=== PATIENT | male | born 1950 | race Caucasian/White ===

== ENCOUNTER 2022-12-05 16:56 | Inpatient (IN) | payer MEDICARE, OTHER ==
[~2022-12-05] VITALS: Ht 180.3 cm; Wt 41.9 kg
--- NOTE | 2022-12-05 17:18 | NUR ---
URINE SAMPLE COLLECTED AND SENT TO LAB.
--- NOTE | 2022-12-05 17:32 | NUR ---
LAC 20G STARTED BLOOD DRAWN
[2022-12-05 18:03] LABS: BASOPHILS # (AUTO) 0.1 K/uL (0.0-0.2); BASOPHILS % (AUTO) 0.4 % (0.0-2.0); EOSINOPHILS % (AUTO) 4.2 % (0.0-6.0); HEMATOCRIT 37 % (39-51); HEMOGLOBIN 11.3 g/dL (13.5-17.5); LYMPHOCYTES # (AUTO) 2.9 K/uL (0.8-4.8); LYMPHOCYTES % (AUTO) 18.9 % (20.0-44.0); MEAN CORPUSCULAR HGB CONC 31 g/dl (31.0-36.0); MEAN CORPUSCULAR VOLUME 87 fL (80-96); MONOCYTES # (AUTO) 0.7 K/uL (0.1-1.30); MONOCYTES % (AUTO) 4.4 % (2.0-12.0); NEUTROPHILS # (AUTO) 11.2 K/uL (1.8-8.9); NEUTROPHILS % (AUTO) 72.1 % (43.0-81.0); PLATELET COUNT (AUTO) 383 K/uL (150-450); RED BLOOD CELL COUNT(AUTO) 4.23 MIL/uL (4.5-6.0); WHITE BLOOD COUNT (AUTO) 15.6 K/uL (4.3-11.0)
[2022-12-05 18:19] LABS: BILIRUBIN,URINE 1+ (NEGATIVE); COLOR,URINE RED (YELLOW); LEUKOCYTE ESTERASE ,URINE 2+ (NEGATIVE); NITRITE, URINE POSITIVE (NEGATIVE); PROTEIN,URINE 2+ mg/dl (NEGATIVE); UGLUCOSE 3+ mg/dL (NEGATIVE)
[2022-12-05 18:22] LABS: BACTERIA,URINE 3+ /HPF (None Seen); RBC,URINE TOO NUMEROUS TO COUN /HPF (0-2); SQUAMOUS EPITHELIAL CELL,UR Few /HPF (None Seen); WBC,URINE TOO NUMEROUS TO COUN /HPF (0-3)
[2022-12-05 18:58] LABS: CALCIUM, SERUM 8.9 mg/dL (8.5-10.1); CARBON DIOXIDE 28 mmol/L (21-32); CHLORIDE 102 mmol/L (98-107); CREATININE 2.5 mg/dL (0.6-1.3); GLUCOSE 206 mg/dL (74-106); POTASSIUM 4.6 mmol/L (3.5-5.1); SODIUM SERUM 138 mmol/L (136-145); UREA NITROGEN, BLOOD 52 mg/dL (7-18)
[2022-12-05 19:03] LABS: ALANINE AMINOTRANSFERASE 21 U/L (12-78); ALBUMIN 2.3 g/dL (3.4-5.0); ALKALINE PHOSPHATASE 146 U/L (46-116); ASPARTATE AMINOTRANSFERASE 25 U/L (15-37); BILIRUBIN,DIRECT 0.1 mg/dL (0.0-0.2); BILIRUBIN,TOTAL 0.3 mg/dL (0.2-1.0); TOTAL PROTEIN, SERUM 8.3 g/dL (6.4-8.2)
--- NOTE | 2022-12-05 19:36 | NUR ---
REPORT RECEIVED FROM DAISY FERRARO
[2022-12-05] MEDS ORDERED: CEFTRIAXONE 1GM BAG (ER ONLY) 50 ML IV ONE (19:37)
[2022-12-05] MEDS ORDERED: CEFTRIAXONE 1GM BAG (ER ONLY) 1 GM/50 ML PIGGYBACK IV ONE (20:00)
--- NOTE | 2022-12-05 20:26 | NUR ---
COVID SWAB DONE AND SENT TO LAB
--- NOTE | 2022-12-05 20:44 | NUR ---
PATIENT IS ALLOWED TO EAT PER JASON DEAL
[2022-12-05] MEDS ORDERED: DEXTROSE 50%-WATER 50 ML DISP.SYRIN IV PRN (21:00)
--- NOTE | 2022-12-05 21:00 | NUR ---
SEEN BY JASON DEAL AT BEDSIDE
--- NOTE | 2022-12-05 21:07 | NUR ---
REPORT GIVEN TO DASIY REYES
--- NOTE | 2022-12-05 21:40 | NUR ---
BLAST FURNACE OPERATOR NOTES RECEIVED PT ON A GURNEY FROM LENS MOLD SETTER. A/O X 4, ABLE TO MAKE NEEDS KNOWN. ORIENTED TO STAFF AND UNIT. PT IS ON ROOM AIR, TOLERATING WELL, BREATHING EVEN AND UNLABORED @ THIS TIME. PT IV ACCESS ON LEFT AC #20G SALINE LOCK., PATENT, INTACT AND FLUSHES WELL W/ NO S & SX OF INFILTRATION @ SITE NOTED. SKIN IS WARM AND DRY. PATIENT REFUSED PHOTO TO BE TAKEN ON AMPUTATED LEFT FOOT AND AMPUTATED RIGHT MID-FOOT. PT BELONGINGS LISTED AND FILED IN THE CHART. ALL NEEDS ATTENDED. SAFETY MEASURES INITIATED. BED PLACED IN LOWEST AND LOCK POSITION. SIDE RAILS UP X 2. BEDSIDE TABLE AND CALL LIGHT IS EASY REACH. BED ALARM IS ON. WILL CONTINUE TO MONITOR ACCORDINGLY.
[2022-12-05] MEDS ORDERED: ONDANSETRON HCL/PF 4 MG/2 ML VIAL IVP PRN (22:00)
[2022-12-05] MEDS ORDERED: ACETAMINOPHEN 325 MG TABLET PO PRN (22:00)
[2022-12-05] MEDS ORDERED: Z GUARD REMEDY 4 OZ OINT TP PRN (22:00)
[2022-12-05] MEDS ORDERED: HYDROCODONE/APAP 5/325MG TABLET PO PRN (22:00)
--- NOTE | 2022-12-05 22:00 | NUR ---
PT REFUSE PHOTO TO BE TAKEN ON AMPUTATED L FOOT AND AMPUTATED R MID FOOT UPON ADMISSION. CHARGE NURSE KAYDEN WAS NOTIFIED AND INFORMED.
--- NOTE | 2022-12-05 23:00 | NUR ---
INSERTED CONDOM CATHETER TO PT. CONDOM CATHETER IN PLACE DRAINING RED URINE.
[2022-12-06 00:29] VITALS: BP 122/65
[2022-12-06 00:32] VITALS: BP 122/63
[2022-12-06] MEDS: BLOOD SUGAR DIAGNOSTIC 1 EACH STRIP IN SCH ×5 (00:35→21:53)
[2022-12-06] MEDS: IV NS 0.9% 1,000 ML IV PRN ×2 (04:26→23:35)
--- NOTE | 2022-12-06 05:17 | NUR ---
KING CATHETER INSERTED @ 0500, IN PLACE DRAINING PINK URINE.
--- NOTE | 2022-12-06 06:05 | NUR ---
CALLED NIRAJ BLUNT OF [facility] FOR PT LIST OF MEDICATION @3530. REQUESTED NIRAJ TO FAX THE LIST TO [facility]. NO LIST OF MEDICATION RECEIVED OF THIS TIME. WILL CONTINUE TO FOLLOW UP.
[2022-12-06 06:08] LABS: BASOPHILS # (AUTO) 0.1 K/uL (0.0-0.2); BASOPHILS % (AUTO) 0.5 % (0.0-2.0); EOSINOPHILS % (AUTO) 4.7 % (0.0-6.0); HEMATOCRIT 37 % (39-51); LYMPHOCYTES # (AUTO) 3.6 K/uL (0.8-4.8); LYMPHOCYTES % (AUTO) 22.5 % (20.0-44.0); MEAN CORPUSCULAR HGB CONC 30 g/dl (31.0-36.0); MEAN CORPUSCULAR VOLUME 89 fL (80-96); MONOCYTES # (AUTO) 0.7 K/uL (0.1-1.30); MONOCYTES % (AUTO) 4.1 % (2.0-12.0); NEUTROPHILS # (AUTO) 10.9 K/uL (1.8-8.9); NEUTROPHILS % (AUTO) 68.2 % (43.0-81.0); PLATELET COUNT (AUTO) 390 K/uL (150-450); RED BLOOD CELL COUNT(AUTO) 4.16 MIL/uL (4.5-6.0)
[2022-12-06 06:10] LABS: IRON, SERUM 47 ug/dl (50-175); TOTAL IRON BINDING CAPACITY 160 ug/dl (250-450)
[2022-12-06 06:19] LABS: CALCIUM, SERUM 9.3 mg/dL (8.5-10.1); CARBON DIOXIDE 24 mmol/L (21-32); CHLORIDE 103 mmol/L (98-107); CREATININE 2.7 mg/dL (0.6-1.3); GLUCOSE 254 mg/dL (74-106); MAGNESIUM 2.1 mg/dL (1.8-2.4); PHOSPHORUS 4.8 mg/dL (2.5-4.9); POTASSIUM 4.3 mmol/L (3.5-5.1); SODIUM SERUM 135 mmol/L (136-145); UREA NITROGEN, BLOOD 54 mg/dL (7-18)
[2022-12-06 06:24] LABS: FERRITIN 269 ng/mL (8-388)
--- NOTE | 2022-12-06 06:31 | NUR ---
RN CLOSING NOTES PT IS AWAKE, A/O X 4, RESPONSIVE AND FOLLOWS VERBAL COMMAND. PT IN RA WITH NO RESPIRATORY DISTRESS NOTED AT THIS TIME. IV SITE ON L AC #20G, PATENT, INTACT AND FLUSHES WELL WITH NO INFILTRATION @SITE NOTED. PT KING CATHETER IS IN PLACE DRAINING PINK URINE. PT KEPT CLEAN, DRY AND COMFORTABLE. ADMINISTERED MEDICATION ACCORDINGLY PER MD'S ORDER. SAFETY MEASURES IS IN PLACE. BED PLACED IN LOWEST AND LOCKED POSITION. SIDE RAILS UP X 2. BEDSIDE TABLE AND CALL LIGHT BUTTON IS EASY REACH. BED ALARM IS ON. WILL ENDORSE PT TO THE NEXT SHIFT FOR CONTINUITY OF CARE.
--- NOTE | 2022-12-06 07:30 | NUR ---
MS RN OPENING NOTES RECEIVED PATIENT IN BED AWAKE AND VERBALLY RESPONSIVE , A/O X4 , ON ROOM AIR WITH NO SOB OR DISTRESS NOTED , NO C/O OF PAIN AND DISCOMFORT , IV ACCESS ON LAC#20 WITH NS @75ML / HR , WITH KING CATHETER DRAINING WITH TEA COLORED URINE , NO ACTIVE BLEEDING NOTED , SAFETY MEASURES PROVIDED , SIDE RIALS UP X2 , CALL LIGHT WITHIN REACH AND MONITORED FOR ANY CHANGES .
[2022-12-06] MEDS: PANTOPRAZOLE 40 MG TABLET.DR PO SCH (07:55)
[2022-12-06 08:05] VITALS: BP 129/67
[2022-12-06] MEDS: INSULIN REGULAR, HUMAN 100 UNIT/ML 3 ML VIAL SQ PRN ×4 (09:14→21:56)
--- NOTE | 2022-12-06 10:36 | NUR ---
COLOR ROOM ATTENDANT/MED RECON PATIENT UNABLE TO PROVIDE HOME MEDICATION INFORMATION. FROM [facility] [phone], SPOKE WITH NIRAJ AND WILL FAX INFORMATION ETHAN OR LATER. PRIMARY RN AWARE.
[2022-12-06] MEDS: DOCUSATE SODIUM 100 MG CAPSULE PO SCH (11:25)
[2022-12-06] MEDS ORDERED: ZINC56.713 TP (15:10)
[2022-12-06] MEDS ORDERED: COLL30OI TP (15:10)
[2022-12-06] MEDS ORDERED: ASPI-1169 PO (15:10)
[2022-12-06] MEDS ORDERED: LEVO25TA76 PO (15:10)
[2022-12-06] MEDS ORDERED: PANT40TA49 PO (15:10)
[2022-12-06] MEDS ORDERED: APIX2.5T PO (15:10)
[2022-12-06] MEDS ORDERED: ACET-868 PO (15:10)
[2022-12-06] MEDS ORDERED: CANA100T PO (15:10)
[2022-12-06] MEDS ORDERED: HYDR-3973 PO (15:10)
[2022-12-06] MEDS ORDERED: DOCU-141 PO (15:10)
[2022-12-06] MEDS ORDERED: FURO20TA4 PO (15:10)
[2022-12-06] MEDS ORDERED: MULT-447 PO (15:10)
[2022-12-06] MEDS ORDERED: ASCO-340 PO (15:10)
[2022-12-06] MEDS ORDERED: INSU100I40 SQ (15:10)
[2022-12-06] MEDS ORDERED: LOSA25TA27 PO (15:10)
[2022-12-06] MEDS ORDERED: INSU100V39 SQ (15:10)
[2022-12-06] MEDS ORDERED: AMIO200T5 PO (15:10)
[2022-12-06] MEDS ORDERED: ISOS30TA86 PO (15:10)
[2022-12-06] MEDS ORDERED: METO50TA16 PO (15:10)
[2022-12-06] MEDS ORDERED: GLUC1KIT SQ (15:10)
[2022-12-06] MEDS ORDERED: INSU100V7 SQ (15:10)
[2022-12-06] MEDS ORDERED: ZINC220C6 PO (15:10)
[2022-12-06] MEDS ORDERED: ATOR40TA PO (15:10)
[2022-12-06] MEDS ORDERED: SENN-148 PO (15:10)
[2022-12-06] MEDS ORDERED: ZOLP5TAB8 PO (15:10)
[2022-12-06] MEDS ORDERED: SACC250C PO (15:10)
[2022-12-06 16:00] VITALS: BP 116/63
[2022-12-06] MEDS: PROSOURCE / PROSTAT (PYXIS) 30 ML UDC GT SCH (17:13)
[2022-12-06 18:20] LABS: CREATININE, URINE 32.1 MG/DL (30.0-125.0)
[2022-12-06 18:27] LABS: BILIRUBIN,URINE 1+ (NEGATIVE); COLOR,URINE RED (YELLOW); LEUKOCYTE ESTERASE ,URINE 1+ (NEGATIVE); NITRITE, URINE POSITIVE (NEGATIVE); PH,URINE 5.5 (5.0-8.0); PROTEIN,URINE 3+ mg/dl (NEGATIVE); UGLUCOSE 2+ mg/dL (NEGATIVE)
[2022-12-06 18:29] LABS: BACTERIA,URINE 2+ /HPF (None Seen); RBC,URINE TOO NUMEROUS TO COUN /HPF (0-2); SQUAMOUS EPITHELIAL CELL,UR Few /HPF (None Seen)
--- NOTE | 2022-12-06 18:53 | NUR ---
MS RN CLOSING NOTES PATIENT IN BED AWAKE AND VERBALLY RESPONSIVE , A/O X4 , ON ROOM AIR WITH NO SOB OR DISTRESS NOTED , NO C/O OF PAIN AND DISCOMFORT , IV ACCESS ON LAC#20 WITH NS @75ML / HR , WITH KING CATHETER DRAINING WITH TEA COLORED URINE , WIHT ORDER FOR U/A AND CULTURE AND SENT TO LAB , MED RECON DONE , NO ACTIVE BLEEDING NOTED ,ALL DUE MEDS ORDERED SAFETY MEASURES PROVIDED , SIDE RIALS UP X2 , CALL LIGHT WITHIN REACH AND MONITORED FOR ANY CHANGES . ENDORSED TO NEXT SHIFT
[2022-12-06] MEDS: CEFTRIAXONE 1 G in IV D5W 50 ML IV SCH (20:15)
[2022-12-06 20:36] VITALS: BP 109/53
--- NOTE | 2022-12-06 22:00 | NUR ---
TRANSFER OF CARE NOTE RECEIVED REPORT FROM DAISY CHURCH. PATIENT IS ALERT AND ORIENTED X4. ABLE TO COMMUNICATE NEEDS WITH THE STAFFS. AFEBRILE AND NOT IN ANY FORM OF ACUTE DISTRESS. BREATHING EVEN AND NON LABORED. WITH IV ACCESS ON LAC 20G RUNNING WITH NS AT 75ML/HR. WITH INTACT KING CATHETER DRAINING WELL WITH TEA-COLORED URINE OUTPUT, NO HEMATURIA OR SEDIMENTS NOTED. SAFETY MEASURES IN PLACE. KEPT BED IN LOCKED AND IN LOW POSITION. SIDE RAILS UP X2. ADVISED TO USE THE CALL LIGHT WHEN IN NEED OF ASSISTANCE.
[2022-12-07 05:42] LABS: BASOPHILS % (AUTO) 0.3 % (0.0-2.0); EOSINOPHILS % (AUTO) 3.9 % (0.0-6.0); HEMATOCRIT 30 % (39-51); HEMOGLOBIN 9.2 g/dL (13.5-17.5); LYMPHOCYTES # (AUTO) 2.6 K/uL (0.8-4.8); LYMPHOCYTES % (AUTO) 20.5 % (20.0-44.0); MEAN CORPUSCULAR HGB CONC 31 g/dl (31.0-36.0); MEAN CORPUSCULAR VOLUME 86 fL (80-96); MONOCYTES # (AUTO) 0.7 K/uL (0.1-1.30); MONOCYTES % (AUTO) 5.7 % (2.0-12.0); NEUTROPHILS # (AUTO) 8.8 K/uL (1.8-8.9); NEUTROPHILS % (AUTO) 69.6 % (43.0-81.0); PLATELET COUNT (AUTO) 262 K/uL (150-450); RED BLOOD CELL COUNT(AUTO) 3.42 MIL/uL (4.5-6.0); WHITE BLOOD COUNT (AUTO) 12.7 K/uL (4.3-11.0)
[2022-12-07 05:58] LABS: CALCIUM, SERUM 8.5 mg/dL (8.5-10.1); CARBON DIOXIDE 22 mmol/L (21-32); CHLORIDE 107 mmol/L (98-107); CREATININE 2.4 mg/dL (0.6-1.3); GLUCOSE 152 mg/dL (74-106); POTASSIUM 4.4 mmol/L (3.5-5.1); SODIUM SERUM 139 mmol/L (136-145); UREA NITROGEN, BLOOD 56 mg/dL (7-18)
--- NOTE | 2022-12-07 06:27 | NUR ---
MS RN CLOSING NOTE PATIENT IN BED, ASLEEP BUT EASY TO AROUSE AND RESPONSIVE. ABLE TO COMMUNICATE NEEDS WITH THE STAFFS. AFEBRILE AND NOT IN ANY FORM OF ACUTE DISTRESS. BREATHING EVEN AND NON LABORED. WITH IV ACCESS ON LAC 20G RUNNING WITH NS AT 75ML/HR. WITH INTACT KING CATHETER DRAINING WELL WITH TEA-COLORED URINE OUTPUT, NO HEMATURIA OR SEDIMENTS NOTED WITH APPROX. 650ML URINE OUTPUT DURING THE SHIFT. MONITORED FOR ANY S/SX. OF HYPO/HYPERGLYCEMIA. MEDICATED ORDERED. SAFETY MEASURES IN PLACE. KEPT BED IN LOCKED AND IN LOW POSITION. SIDE RAILS UP X2. ADVISED TO USE THE CALL LIGHT WHEN IN NEED OF ASSISTANCE. ALL NURSING NEEDS ATTENDED. ENDORSED TO INCOMING SHIFT FOR CONTINUITY OF CARE.
[2022-12-07] MEDS: BLOOD SUGAR DIAGNOSTIC 1 EACH STRIP IN SCH ×4 (06:38→21:23)
[2022-12-07] MEDS: INSULIN REGULAR, HUMAN 100 UNIT/ML 3 ML VIAL SQ PRN ×4 (06:39→21:24)
--- NOTE | 2022-12-07 07:20 | NUR ---
MS RN OPENING NOTES RECEIVED PT IN BED SLEEPING WITH HOB ELEVATED, PT IS EASILY AWAKEN, A/O X 4, RESPONSIVE AND FOLLOWS VERBAL COMMAND. ON ROOM AIR WITHOUT ANY RESPIRATORY DISTRESS NOTED AT THIS TIME. IV ACCESS ON LAC #20G WITH NS RUNNING AT 75 ML/HR, PATENT, INTACT AND FLUSHING WELL WITH NO INFILTRATION NOTED. PT HAS KING CATHETER DRAINING 100 ML OF LEANNA URINE WITH SEDIMENTS VIA GRAVITY. RE-APPLIED HEEL PROTECTOR ON R HEEL, SAFETY MEASURES IN PLACE: BED PLACED IN LOWEST AND LOCKED POSITION. SIDE RAILS UP X 2. TRAY TABLE AND CALL LIGHT WITHIN EASY EASY REACH, BED ALARM ON WELL. WILL CONTINUE TO MONITOR DURING MY SHIFT.
[2022-12-07] MEDS: PANTOPRAZOLE 40 MG TABLET.DR PO SCH ×2 (07:30→07:49)
[2022-12-07 08:13] VITALS: BP 96/56
[2022-12-07] MEDS: DOCUSATE SODIUM 100 MG CAPSULE PO SCH ×2 (08:40→08:45)
[2022-12-07] MEDS: PROSOURCE / PROSTAT (PYXIS) 30 ML UDC GT SCH ×2 (08:40→17:00)
--- NOTE | 2022-12-07 08:45 | NUR ---
RN NOTES - PT REFUSED PANTOPRAZOLE AND DOCUSATE SODIUM, RETURNED MEDICATION
--- NOTE | 2022-12-07 08:45 | NUR ---
RN NOTES - IVF NS DC'D ORDERED.
[2022-12-07 10:08] LABS: *ANA ANTI-CENTROMERE B AB <0.2 AI (0.0-0.9); *ANA ANTI-DNA(DS) AB, QN 2 IU/mL (0-9); *ANA ANTI-JO-1 <0.2 AI (0.0-0.9); *ANA ANTICHROMATIN ANTIBODY <0.2 AI (0.0-0.9); *ANA RNP ANTIBODIES 0.3 AI (0.0-0.9); *ANA SJOGREN'S ANTI-SS-A <0.2 AI (0.0-0.9); *ANA SJOGREN'S ANTI-SS-B <0.2 AI (0.0-0.9); *ANAANTI-SCLERODERMA-70 AB <0.2 AI (0.0-0.9); *ANASMITH AB <0.2 AI (0.0-0.9)
[2022-12-07 16:06] VITALS: BP_SYST 118; BP_SYST 135; BP_DIAS 60; BP_DIAS 94
--- NOTE | 2022-12-07 18:50 | NUR ---
MS RN CLOSING NOTES PT IN BED AWAKE WITH HOB ELEVATED. A/O X 4, RESPONSIVE AND FOLLOWS VERBAL COMMAND. ON ROOM AIR WITHOUT ANY RESPIRATORY DISTRESS NOTED AT THIS TIME. IV ACCESS ON LAC #20G SALINE LOCKED, PATENT, INTACT AND FLUSHING WELL. PT HAS KING CATHETER DRAINED ABOUT 450 ML OF LEANNA URINE WITH SEDIMENTS VIA GRAVITY. ALL NEEDS MET, ALL DUE MEDS GIVEN. SAFETY MEASURES MAINTAINED: BED PLACED IN LOWEST AND LOCKED POSITION. SIDE RAILS UP X 2. TRAY TABLE AND CALL LIGHT WITHIN EASY REACH, BED ALARM ON WELL. WILL ENDORSE TO HEALTH COMMUNICATIONS SPECIALIST NURSE.
--- NOTE | 2022-12-07 19:55 | NUR ---
MS RN OPENING NOTE PATIENT AWAKE IN BED, ALERT/ORIENTED X 4, PT ABLE TO MAKE NEEDS KNOWN. PATIENT STABLE ON RA, NO S/S OF DISTRESS OR SOB NOTED, BREATHING EVEN AND UNLABORED. IV ACCESS ON LAC #20G INTACT AND SALINE LOCKED. KING CATHETER IN PLACE, DRAINING YELLOW URINE BY GRAVITY. SAFETY MEASURES IN PLACE: CALL LIGHT WITHIN REACH, SIDE RAILS UP X 3, BED LOCKED IN LOWEST POSITION, HOB ELEVATED, BED ALARM ON. WILL CONTINUE TO MONITOR PATIENT
[2022-12-07 20:00] VITALS: BP 114/55
[2022-12-07] MEDS: CEFTRIAXONE 1 G in IV D5W 50 ML IV SCH (20:10)
--- NOTE | 2022-12-07 23:15 | NUR ---
MS RN NOTE PATIENT MRSA POSITIVE IN NARES, ORDER FOR BACTROBAN OINTMENT PLACED
[2022-12-08 06:01] LABS: BASOPHILS % (AUTO) 0.3 % (0.0-2.0); EOSINOPHILS % (AUTO) 3.5 % (0.0-6.0); HEMATOCRIT 28 % (39-51); HEMOGLOBIN 8.6 g/dL (13.5-17.5); LYMPHOCYTES # (AUTO) 2.8 K/uL (0.8-4.8); LYMPHOCYTES % (AUTO) 25.2 % (20.0-44.0); MEAN CORPUSCULAR HGB CONC 31 g/dl (31.0-36.0); MEAN CORPUSCULAR VOLUME 87 fL (80-96); MONOCYTES # (AUTO) 0.6 K/uL (0.1-1.30); MONOCYTES % (AUTO) 5.8 % (2.0-12.0); NEUTROPHILS # (AUTO) 7.2 K/uL (1.8-8.9); NEUTROPHILS % (AUTO) 65.2 % (43.0-81.0); PLATELET COUNT (AUTO) 231 K/uL (150-450); RED BLOOD CELL COUNT(AUTO) 3.18 MIL/uL (4.5-6.0)
[2022-12-08 06:26] LABS: CALCIUM, SERUM 8.2 mg/dL (8.5-10.1); CARBON DIOXIDE 23 mmol/L (21-32); CHLORIDE 105 mmol/L (98-107); CREATININE 2.3 mg/dL (0.6-1.3); GLUCOSE 266 mg/dL (74-106); POTASSIUM 4.1 mmol/L (3.5-5.1); SODIUM SERUM 137 mmol/L (136-145); UREA NITROGEN, BLOOD 69 mg/dL (7-18)
--- NOTE | 2022-12-08 06:29 | NUR ---
MS RN CLOSING NOTE PATIENT AWAKE IN BED, ALERT/ORIENTED X 4, PT ABLE TO MAKE NEEDS KNOWN. PATIENT STABLE ON RA, NO S/S OF DISTRESS OR SOB NOTED, BREATHING EVEN AND UNLABORED. IV ACCESS ON LAC #20G INTACT AND SALINE LOCKED. KING CATHETER IN PLACE, DRAINING YELLOW URINE BY GRAVITY, 600 ML OUTPUT. NO SIGNIFICANT CHANGES THIS SHIFT, MEDICATIONS GIVEN ORDERED, PT NEEDS MET THROUGHOUT SHIFT, PATIENT HAD 1 BM THIS SHIFT. SAFETY MEASURES IN PLACE: CALL LIGHT WITHIN REACH, SIDE RAILS UP X 3, BED LOCKED IN LOWEST POSITION, HOB ELEVATED, BED ALARM ON. WILL ENDORSE TO DAYSHIFT RN FOR CONTINUITY OF CARE
[2022-12-08] MEDS: BLOOD SUGAR DIAGNOSTIC 1 EACH STRIP IN SCH ×4 (06:36→21:37)
[2022-12-08] MEDS: INSULIN REGULAR, HUMAN 100 UNIT/ML 3 ML VIAL SQ PRN ×4 (06:42→21:40)
[2022-12-08] MEDS: PANTOPRAZOLE 40 MG TABLET.DR PO SCH (07:30)
--- NOTE | 2022-12-08 07:54 | NUR ---
RN OPENING NOTE RECEIVED PATIENT IN BED AO x 4, ABLE TO RESPONDS PHYSICAL STIMULI. RESPIRATORY EVEN AND UNLABORED IN ROOM AIR. IN NO ACUTE RESPIRATORY DISTRESS OBSERVED. SKIN IS WARM TO TOUCH, KEEP CLEAN/DRY. KING CATH CONNECTING TO THE URINE BAG. KEPT ELEVATED HOB FOR ASPIRATION PRECAUTION/ENSURE AIRWAY, ALSO LOWEST BED POSITIONED. BED ALARM IS ON AT ALL THE TIME FOR SAFETY. CALL LIGHT WITHIN REACH, WILL CONTINUE TO MONITOR.
[2022-12-08 08:00] VITALS: BP 137/66
[2022-12-08] MEDS: DOCUSATE SODIUM 100 MG CAPSULE PO SCH (08:22)
[2022-12-08] MEDS: MUPIROCIN OINT 2% 22 GM TUBE NS SCH ×2 (08:22→20:39)
[2022-12-08] MEDS: PROSOURCE / PROSTAT (PYXIS) 30 ML UDC GT SCH ×2 (08:22→17:00)
--- NOTE | 2022-12-08 09:17 | NUR ---
THE PATIENT REFUSED PRO-STAT AND REQUESTED GLUCERNA/CHOCOLATE FAVOR INSTEAD THIS MORNING. PLACED NEW ORDER GLUCERNA BID.
[2022-12-08] MEDS ORDERED: INVOKANA 100 MG XX SCH (10:30)
[2022-12-08] MEDS ORDERED: ACETAMINOPHEN 325 MG TABLET PO PRN (10:30)
[2022-12-08] MEDS: ASPIRIN 81 MG TAB.CHEW PO SCH (11:00)
[2022-12-08] MEDS: ASCORBIC ACID 500 MG TABLET PO SCH (11:00)
[2022-12-08] MEDS: AMIODARONE HCL 200 MG TABLET PO SCH (11:00)
[2022-12-08] MEDS: APIXABAN 2.5 MG TABLET PO SCH ×2 (11:01→16:55)
[2022-12-08] MEDS: ZINC SULFATE 220 MG CAPSULE PO SCH (11:09)
[2022-12-08] MEDS: GLUCERNA SHAKE 237 ML CAN PO SCH ×2 (12:12→17:22)
[2022-12-08] MEDS: ZINC OXIDE 56.7 GM TUBE TP SCH (14:14)
[2022-12-08 16:00] VITALS: BP 117/61
[2022-12-08] MEDS: LOSARTAN POTASSIUM 25 MG TABLET PO SCH (16:53)
[2022-12-08] MEDS: LINAGLIPTIN 5 MG TABLET PO SCH ×2 (16:53→17:00)
--- NOTE | 2022-12-08 18:23 | NUR ---
RN CLOSING NOTE PATIENT REMAINS AO X 4. IN NO ACUTE DISTRESS OBSERVED. RESPIRATORY EVEN AND UNLABORED IN ROOM AIR, NO SOB OR DESATURATION NOTED. SKIN IS WARM TO TOUCH KEEP CLEAN/DRY. CHANGED DRESSING. KEPT ELEVATED HOB FOR ENSURE AIRWAY/ASPIRATION PRECAUTION, AND LOWEST BED POSITION. BED ALARM IS ON AT ALL THE TIME FOR SAFETY. CALL LIGHT WITHIN REACH, WILL ENDORSE SHAREPOINT ARCHITECT.
--- NOTE | 2022-12-08 19:30 | NUR ---
MS RN OPENING NOTE RECEIVED PATIENT IN BED, WITH HOB ELEVATED, ALERT AND ORIENTED X4. ABLE TO MAKE NEEDS KNOWN. AFEBRILE AND NOT IN ANY FORM OF ACUTE DISTRESS. BREATHING EVEN AND NON LABORED. WITH IV ACCESS ON LEFT AC 20G-SL. WITH INTACT KING CATHETER DRAINING WELL WITH CLEAR YELLOW URINE OUTPUT. SAFETY MEASURES IN PLACE. KEPT BED IN LOCKED AND IN LOW POSITION. SIDE RAILS UP X 2. ADVISED TO USE THE CALL LIGHT WHEN IN NEED OF ASSISTANCE.
[2022-12-08 20:00] VITALS: BP 114/56
[2022-12-08] MEDS: CEFTRIAXONE 1 G in IV D5W 50 ML IV SCH (20:20)
[2022-12-08] MEDS: ATORVASTATIN 40 MG TABLET PO SCH (21:37)
[2022-12-08] MEDS: SENNOSIDES 8.6 MG TABLET PO SCH ×3 (21:37→22:00)
[2022-12-08] MEDS: INSULIN GLARGINE, 100 UNIT/ML CARTRIDGE SQ SCH (21:41)
[2022-12-08] MEDS ORDERED: ZOLPIDEM TARTRATE 5 MG TABLET PO PRN (22:00)
[2022-12-09 05:53] LABS: BASOPHILS % (AUTO) 0.4 % (0.0-2.0); EOSINOPHILS % (AUTO) 4.4 % (0.0-6.0); HEMATOCRIT 27 % (39-51); HEMOGLOBIN 8.3 g/dL (13.5-17.5); LYMPHOCYTES # (AUTO) 3.1 K/uL (0.8-4.8); LYMPHOCYTES % (AUTO) 26.5 % (20.0-44.0); MEAN CORPUSCULAR HGB CONC 31 g/dl (31.0-36.0); MEAN CORPUSCULAR VOLUME 87 fL (80-96); MONOCYTES # (AUTO) 0.6 K/uL (0.1-1.30); MONOCYTES % (AUTO) 5.5 % (2.0-12.0); NEUTROPHILS # (AUTO) 7.4 K/uL (1.8-8.9); NEUTROPHILS % (AUTO) 63.2 % (43.0-81.0); PLATELET COUNT (AUTO) 219 K/uL (150-450); RED BLOOD CELL COUNT(AUTO) 3.13 MIL/uL (4.5-6.0); WHITE BLOOD COUNT (AUTO) 11.6 K/uL (4.3-11.0)
[2022-12-09 06:11] LABS: CALCIUM, SERUM 8.4 mg/dL (8.5-10.1); CARBON DIOXIDE 23 mmol/L (21-32); CHLORIDE 107 mmol/L (98-107); CREATININE 2.1 mg/dL (0.6-1.3); GLUCOSE 161 mg/dL (74-106); POTASSIUM 4.1 mmol/L (3.5-5.1); SODIUM SERUM 138 mmol/L (136-145); UREA NITROGEN, BLOOD 75 mg/dL (7-18)
--- NOTE | 2022-12-09 06:20 | NUR ---
MS RN CLOSING NOTE PATIENT IN BED, WITH HOB ELEVATED, ASLEEP BUT EASY TO AROUSE AND RESPONSIVE. ABLE TO MAKE NEEDS KNOWN. AFEBRILE AND NOT IN ANY FORM OF ACUTE DISTRESS. BREATHING EVEN AND NON LABORED. WITH IV ACCESS ON LEFT AC 20G-SL. WITH INTACT KING CATHETER DRAINING WELL WITH CLEAR YELLOW URINE OUTPUT, NO HEMATURIA OR SEDIMENTS NOTED WITH APPROX. 600ML URINE OUTPUT DURING THE SHIFT. MONITORED FOR ANY S/SX. OF HYPO/HYPERGLYCEMIA. MEDICATED ORDERED. CONTINUOUS ON IV ATB, MONITORED FOR ANY ADVERSE REACTION. SAFETY MEASURES IN PLACE. KEPT BED IN LOCKED AND IN LOW POSITION. SIDE RAILS UP X 2. ADVISED TO USE THE CALL LIGHT WHEN IN NEED OF ASSISTANCE. ALL NURSING NEEDS ATTENDED. ENDORSED TO INCOMING SHIFT FOR CONTINUITY OF CARE.
[2022-12-09] MEDS: BLOOD SUGAR DIAGNOSTIC 1 EACH STRIP IN SCH ×4 (06:35→22:00)
[2022-12-09] MEDS: INSULIN REGULAR, HUMAN 100 UNIT/ML 3 ML VIAL SQ PRN ×4 (06:36→22:57)
--- NOTE | 2022-12-09 07:40 | NUR ---
MS RN OPENING NOTE PATIENT SLEEPING IN BED EASY TO AROUSE AND RESPONSIVE. ABLE TO MAKE NEEDS KNOWN. AFEBRILE AND NOT IN ANY FORM OF ACUTE DISTRESS. BREATHING EVEN AND NON LABORED. WITH IV ACCESS ON LEFT AC 20G-SL. WITH INTACT KING CATHETER DRAINING WELL WITH CLEAR YELLOW URINE OUTPUT, NO HEMATURIA OR SEDIMENTS NOTED. SAFETY MEASURES IN PLACE. KEPT BED IN LOCKED AND IN LOW POSITION. SIDE RAILS UP X 2. ADVISED TO USE THE CALL LIGHT WHEN IN NEED OF ASSISTANCE. WILL CONTINUE TO MONITOR.
[2022-12-09] MEDS: PANTOPRAZOLE 40 MG TABLET.DR PO SCH (07:51)
[2022-12-09] MEDS: LEVOTHYROXINE SODIUM 25 MCG TABLET PO SCH (07:51)
[2022-12-09 08:00] VITALS: BP 109/51
[2022-12-09] MEDS: ZINC SULFATE 220 MG CAPSULE PO SCH (08:30)
[2022-12-09] MEDS: ISOSORBIDE MONONITRATE (30MG) 30 MG TAB.SR.24H PO SCH (08:31)
[2022-12-09] MEDS: MULTIVITAMINS,THERAGRAN 1 UDTAB TABLET PO SCH (08:31)
[2022-12-09] MEDS: ASCORBIC ACID 500 MG TABLET PO SCH (08:33)
[2022-12-09] MEDS: LACTOBACILLUS RHAMNOSUS GG 1 EACH CAP.SPRINK PO SCH (08:33)
[2022-12-09] MEDS: AMIODARONE HCL 200 MG TABLET PO SCH (08:33)
[2022-12-09] MEDS: ASPIRIN 81 MG TAB.CHEW PO SCH (08:33)
[2022-12-09] MEDS: DOCUSATE SODIUM 100 MG CAPSULE PO SCH ×2 (08:34→09:00)
[2022-12-09] MEDS: LOSARTAN POTASSIUM 25 MG TABLET PO SCH ×2 (08:34→17:06)
[2022-12-09] MEDS: LINAGLIPTIN 5 MG TABLET PO SCH (08:39)
[2022-12-09] MEDS: APIXABAN 2.5 MG TABLET PO SCH ×2 (08:41→17:00)
[2022-12-09] MEDS: GLUCERNA SHAKE 237 ML CAN PO SCH ×2 (08:53→17:04)
[2022-12-09] MEDS: PROSOURCE / PROSTAT (PYXIS) 30 ML UDC GT SCH ×2 (08:53→17:05)
[2022-12-09] MEDS: MUPIROCIN OINT 2% 22 GM TUBE NS SCH ×2 (08:54→21:46)
[2022-12-09] MEDS ORDERED: COLLAGENASE 30 GM TUBE TP SCH (09:00)
[2022-12-09] MEDS: ZINC OXIDE 56.7 GM TUBE TP SCH (09:21)
[2022-12-09] MEDS: METOPROLOL TARTRATE 50 MG TABLET PO SCH (09:21)
[2022-12-09] MEDS: MEROPENEM 500 MG in IV NS 0.9% 50 ML IV SCH ×2 (12:08→21:46)
[2022-12-09 16:00] VITALS: BP 92/49
--- NOTE | 2022-12-09 18:52 | NUR ---
MS RN CLOSING NOTE PATIENT IN BED, WITH HOB ELEVATED, ASLEEP BUT EASY TO AROUSE AND RESPONSIVE. ABLE TO MAKE NEEDS KNOWN. AFEBRILE AND NOT IN ANY FORM OF ACUTE DISTRESS. BREATHING EVEN AND NON LABORED. WITH IV ACCESS ON LEFT AC 20G-SL. WITH INTACT KING CATHETER DRAINING WELL WITH CLEAR YELLOW URINE OUTPUT, NO HEMATURIA OR SEDIMENTS NOTED. MEDICATED ORDERED. CONTINUOUS ON IV ATB, STARTED MERREM ATB. MONITORED FOR ANY ADVERSE REACTION. SAFETY MEASURES IN PLACE. KEPT BED IN LOCKED AND IN LOW POSITION. SIDE RAILS UP X 2. ADVISED TO USE THE CALL LIGHT WHEN IN NEED OF ASSISTANCE. ALL NURSING NEEDS ATTENDED. ENDORSED TO INCOMING SHIFT FOR CONTINUITY OF CARE.
--- NOTE | 2022-12-09 19:40 | NUR ---
MS RN OPENING NOTES: RECEIVED PATIENT AWAKE IN BED, BED IN LOW POSITION,CALL LIGHTS WITHIN REACH, NO COMPLAIN OF PAIN AND DISCOMFORT AT THIS TIME, ON ROOM AIR SATURATING WELL, PATIENT IS A./O X4 ABLE TO MAKE NEEDS KNOWN, IV LINE AT LAC#20SL, PATIENT KEPT CLEAN AND DRY ALL NEEDS MET WILL CONTINUE TO MONITOR.
[2022-12-09 20:00] VITALS: BP 115/56
[2022-12-09] MEDS: SENNOSIDES 8.6 MG TABLET PO SCH (22:00)
[2022-12-09] MEDS: ATORVASTATIN 40 MG TABLET PO SCH (22:49)
[2022-12-09] MEDS: INSULIN GLARGINE, 100 UNIT/ML CARTRIDGE SQ SCH (22:58)
--- NOTE | 2022-12-10 06:18 | NUR ---
RN CLOSING NOTES: PATIENT SLEEP IN BED COMFORTABLY, BED IN LOW POSITION CALL LIGHTS WITHIN REACH, NO COMPLAIN OF PAIN AND DISCOMFORT AT THIS TIME, ON ROOM AIR SATURATING WELL. PATIENT IS A/OX4 ABLE TO MAKE NEEDS KNOWN, IV LINE AT LAC#20 SL, PATIENT KEPT CLEAN AND DRY ALL NEEDS MET , WILL CONTINUE TO MONITOR.
[2022-12-10 06:23] LABS: BASOPHILS % (AUTO) 0.3 % (0.0-2.0); EOSINOPHILS % (AUTO) 3.5 % (0.0-6.0); HEMATOCRIT 24 % (39-51); HEMOGLOBIN 7.7 g/dL (13.5-17.5); LYMPHOCYTES # (AUTO) 2.1 K/uL (0.8-4.8); LYMPHOCYTES % (AUTO) 22.4 % (20.0-44.0); MEAN CORPUSCULAR HGB CONC 32 g/dl (31.0-36.0); MEAN CORPUSCULAR VOLUME 86 fL (80-96); MONOCYTES # (AUTO) 0.6 K/uL (0.1-1.30); MONOCYTES % (AUTO) 6.3 % (2.0-12.0); NEUTROPHILS # (AUTO) 6.3 K/uL (1.8-8.9); NEUTROPHILS % (AUTO) 67.5 % (43.0-81.0); PLATELET COUNT (AUTO) 196 K/uL (150-450); RED BLOOD CELL COUNT(AUTO) 2.82 MIL/uL (4.5-6.0); WHITE BLOOD COUNT (AUTO) 9.3 K/uL (4.3-11.0)
--- NOTE | 2022-12-10 06:30 | NUR ---
RN NOTES: BLOOD SUGAR-170/ 3 UNITS REGULAR INSULIN GIVEN,
[2022-12-10] MEDS: INSULIN REGULAR, HUMAN 100 UNIT/ML 3 ML VIAL SQ PRN ×2 (06:45→12:40)
[2022-12-10 06:49] LABS: CALCIUM, SERUM 8.3 mg/dL (8.5-10.1); CARBON DIOXIDE 22 mmol/L (21-32); CHLORIDE 108 mmol/L (98-107); CREATININE 2.1 mg/dL (0.6-1.3); GLUCOSE 165 mg/dL (74-106); POTASSIUM 4.3 mmol/L (3.5-5.1); SODIUM SERUM 138 mmol/L (136-145); UREA NITROGEN, BLOOD 71 mg/dL (7-18)
[2022-12-10] MEDS: BLOOD SUGAR DIAGNOSTIC 1 EACH STRIP IN SCH ×3 (06:55→17:28)
[2022-12-10 07:00] VITALS: BP 106/59
[2022-12-10] MEDS: LEVOTHYROXINE SODIUM 25 MCG TABLET PO SCH (07:42)
[2022-12-10] MEDS: PANTOPRAZOLE 40 MG TABLET.DR PO SCH (07:42)
--- NOTE | 2022-12-10 07:45 | NUR ---
MS RN OPENING NOTES: RECEIVED PATIENT AWAKE IN BED, VERBALLY RESPONSIVE , NO SOB OR DISTRESS NOTED NO COMPLAIN OF PAIN AND DISCOMFORT AT THIS TIME, ON ROOM AIR SATURATING WELL, PATIENT IS A./O X4 ABLE TO MAKE NEEDS KNOWN, IV LINE AT LAC#20SL, SAFETY MEASURES PROVIDED , SIDE RAILS UP X2 , CALL LIGHT WITHIN REACH AND WILL MONITOR FOR ANY CHANGES , PATIENT KEPT CLEAN AND DRY ALL NEEDS MET WILL CONTINUE TO MONITOR.
[2022-12-10] MEDS: PROSOURCE / PROSTAT (PYXIS) 30 ML UDC GT SCH ×2 (07:59→17:10)
[2022-12-10] MEDS: GLUCERNA SHAKE 237 ML CAN PO SCH ×2 (07:59→17:10)
[2022-12-10 08:02] VITALS: BP 133/61
[2022-12-10] MEDS: LINAGLIPTIN 5 MG TABLET PO SCH ×2 (08:38→08:55)
[2022-12-10] MEDS: ASPIRIN 81 MG TAB.CHEW PO SCH (08:38)
[2022-12-10] MEDS: ASCORBIC ACID 500 MG TABLET PO SCH (08:39)
[2022-12-10] MEDS: ZINC SULFATE 220 MG CAPSULE PO SCH (08:39)
[2022-12-10] MEDS: MULTIVITAMINS,THERAGRAN 1 UDTAB TABLET PO SCH (08:39)
[2022-12-10] MEDS: LACTOBACILLUS RHAMNOSUS GG 1 EACH CAP.SPRINK PO SCH (08:39)
[2022-12-10] MEDS: LOSARTAN POTASSIUM 25 MG TABLET PO SCH ×2 (08:40→17:11)
[2022-12-10] MEDS: METOPROLOL TARTRATE 50 MG TABLET PO SCH (08:40)
[2022-12-10] MEDS: AMIODARONE HCL 200 MG TABLET PO SCH (08:40)
[2022-12-10] MEDS: ISOSORBIDE MONONITRATE (30MG) 30 MG TAB.SR.24H PO SCH (08:40)
[2022-12-10] MEDS: DOCUSATE SODIUM 100 MG CAPSULE PO SCH ×2 (08:41→08:55)
[2022-12-10] MEDS: APIXABAN 2.5 MG TABLET PO SCH ×2 (08:53→17:12)
[2022-12-10] MEDS: MUPIROCIN OINT 2% 22 GM TUBE NS SCH (08:54)
[2022-12-10] MEDS: ZINC OXIDE 56.7 GM TUBE TP SCH (08:54)
[2022-12-10] MEDS: MEROPENEM 500 MG in IV NS 0.9% 50 ML IV SCH (08:57)
[2022-12-10] MEDS ORDERED: ACID1TAB12 PO (11:39)
--- NOTE | 2022-12-10 11:59 | NUR ---
RN NOTES PATIENT IS WITH ORDER FOR COVID TEST ANTIGEN AND PATIENT REFUSED EXPLAINED 3X AND STILL REFUSING
[2022-12-10 16:00] VITALS: BP 107/50
[2022-12-10 17:11] VITALS: BP 107/50
--- NOTE | 2022-12-10 18:45 | NUR ---
PSYCHOLOGIST NOTES PATIENT IS WITH ORDER FOR DISCHARGE TODAY , TO [facility] , DISCHARGE PAPERS WERE PREPARED AND PATIENT IS ALERT AND ORIENTED AND ABLE TO MAKE NEEDS KNOWN , DISCHARGE INSTRUCTIONS PROVIDED REGARDING MEDICATIONS TO CONTINUE , IV ANTIBIOTIC AT HOME WITH HOME HEALTH NURSE FOLLOW UP AND WHEN TO CALL 911 IN CASE OF EMERGENCY AND FOLLOW WITH PCP , ALL BELONGING WERE BROUGHT BY THE PATIENT AND FORM WAS SIGNED , NO C/O OF PAIN AND DISCOMFORT AND NO SOB OR DISTRESS NOTED , PATIENT WITH [facility] FOR IV ATB FOR 9 DAYS , AND IV ACCESS ON THE LAC REMOVED AND ID BAND REMOVED , PATIENT IS IN STABLE CONDITION AT THIS TIME VIA GURNEY WITH AMBULANCE PERSONNEL
== END 2022-12-10 18:43 | disposition home health service (06) | DRG 871 ==
LOC: ER 16:58 → MED 21:05
PROVIDERS: ADMIT Nurse Practitioner Family; ATTEND Nurse Practitioner Acute Care
PROC: 05HC33Z Insertion of Infusion Device into Left Basilic Vein, Percutaneous Approach (ICD-10-PCS; principal; 2022-12-10)
DX: A41.9 Sepsis, unspecified organism (principal); E43 Unspecified severe protein-calorie malnutrition; N17.0 Acute kidney failure with tubular necrosis; Z16.12 Extended spectrum beta lactamase (ESBL) resistance; R64 Cachexia; Z68.1 Body mass index [BMI] 19.9 or less, adult; E88.09 Other disorders of plasma-protein metabolism, not elsewhere classified; Z20.822 Contact with and (suspected) exposure to COVID-19; I25.10 Atherosclerotic heart disease of native coronary artery without angina pectoris; I48.91 Unspecified atrial fibrillation; E78.5 Hyperlipidemia, unspecified; M19.90 Unspecified osteoarthritis, unspecified site; K21.9 Gastro-esophageal reflux disease without esophagitis; Z89.431 Acquired absence of right foot; E11.51 Type 2 diabetes mellitus with diabetic peripheral angiopathy without gangrene; E03.9 Hypothyroidism, unspecified; Z88.1 Allergy status to other antibiotic agents; Z95.1 Presence of aortocoronary bypass graft; Z85.028 Personal history of other malignant neoplasm of stomach; Z90.49 Acquired absence of other specified parts of digestive tract; D63.8 Anemia in other chronic diseases classified elsewhere; I12.9 Hypertensive chronic kidney disease with stage 1 through stage 4 chronic kidney disease, or unspecified chronic kidney disease; E11.22 Type 2 diabetes mellitus with diabetic chronic kidney disease; N18.9 Chronic kidney disease, unspecified; N30.91 Cystitis, unspecified with hematuria; E11.65 Type 2 diabetes mellitus with hyperglycemia; D50.0 Iron deficiency anemia secondary to blood loss (chronic); B96.20 Unspecified Escherichia coli [E. coli] as the cause of diseases classified elsewhere; Z79.01 Long term (current) use of anticoagulants; Z79.4 Long term (current) use of insulin; Z89.519 Acquired absence of unspecified leg below knee; Z92.89 Personal history of other medical treatment
CPT/HCPCS: 36415; 71045-TC; 76770-TC; 80048-TC; 80076-TC; 81001; 82570-TC; 82728-TC; 82962-TC; 83540-TC; 83735-TC; 84100-TC; 84300-TC; 84439-TC; 84443-TC; 85025-TC; 86225; 86235; 86706; 86803; 87040-TC; 87081-TC; 87086-TC; A4349; A6403; C9803; G0378; J0696; J1815; J2185; J7030; J7060